=== PATIENT | male | born 1940 | race Caucasian/White ===

== ENCOUNTER 2016-07-09 10:11 | Outpatient (CLI) | payer MEDICARE, OTHER | END 2016-07-09 10:12 | disposition home or self-care (01) | DX: N40.1 Benign prostatic hyperplasia with lower urinary tract symptoms (principal); N13.8 Other obstructive and reflux uropathy ==

== ENCOUNTER 2016-09-23 09:45 | Outpatient (CLI) | payer MEDICARE, OTHER | END 2016-09-23 09:46 | disposition home or self-care (01) | DX: I10 Essential (primary) hypertension (principal); K30 Functional dyspepsia; D64.9 Anemia, unspecified; R73.9 Hyperglycemia, unspecified ==

== ENCOUNTER 2017-07-12 08:00 | Outpatient (CLI) | payer MEDICARE, OTHER ==
[2017-07-12 13:02] LABS: BASOPHILS % (AUTO) 0.9 %; EOSINOPHILS # (AUTO) 0.3 10^3/uL (0.0-0.7); HGB - HEMOGLOBIN 14.2 g/dL (14.0-18.0); LYMPHOCYTES # (AUTO) 1.4 10^3/uL (1.5-3.5); LYMPHOCYTES % (AUTO) 29.1 %; MEAN CORPUSCULAR HEMOGLOBIN 33.4 pg (27.0-31.0); MEAN CORPUSCULAR HGB CONC 35.4 g/dL (32.0-36.0); MEAN CORPUSCULAR VOLUME 94.5 fL (80.0-94.0); MEAN PLATELET VOLUME 8.5 fL (7.4-11.4); MONOCYTES # (AUTO) 0.4 10^3/uL (0.0-1.0); MONOCYTES % (AUTO) 7.5 %; NEUTROPHILS # (AUTO) 2.7 10^3/uL (1.5-6.6); NEUTROPHILS % (AUTO) 55.5 %; PLT - PLATELET COUNT 153 10^3/uL (130-450); RED BLOOD COUNT 4.26 10^6/uL (4.70-6.10); RED CELL DISTRIBUTION WIDTH 14.7 % (12.0-15.0); WHITE BLOOD COUNT 4.9 x10^3/uL (4.8-10.8)
[2017-07-12 14:22] LABS: ALBUMIN 4.4 g/dL (3.2-5.5); ALBUMIN/GLOBULIN RATIO 1.9 (1.0-2.2); ALKALINE PHOSPHATASE 33 IU/L (42-121); ALT ALANINE AMINOTRANSFERASE 17 IU/L (10-60); AST ASPARTATE AMINOTRANSFERASE 20 IU/L (10-42); BILIRUBIN,TOTAL 1.7 mg/dL (0.2-1.0); BUN - BLOOD UREA NITROGEN 16 mg/dL (6-20); CALCIUM 9.1 mg/dL (8.5-10.3); CARBON DIOXIDE - CO2 28 mmol/L (21-32); CHLORIDE 100 mmol/L (101-111); CHOL/HDL RATIO 3.4 (<5.0); CHOLESTEROL 200 mg/dL; CREATININE 0.9 mg/dL (0.6-1.2); GFR - MDRD 82 (>89); GLUCOSE 111 mg/dL (70-100); HDL CHOLESTEROL 59 mg/dL; LDL CHOLESTEROL,CALCULATED 129 mg/dL; LDL/HDL RATIO 2.2 (<3.6); SODIUM 132 mmol/L (135-145); TOTAL PROTEIN 6.7 g/dL (6.7-8.2); VLDL CHOLESTEROL 12 mg/dL
== END 2017-07-12 08:01 | disposition home or self-care (01) ==
LOC: LAB.WCP 08:00
PROVIDERS: ATTEND Family Medicine
DX: I10 Essential (primary) hypertension (principal); Z12.5 Encounter for screening for malignant neoplasm of prostate; Z13.220 Encounter for screening for lipoid disorders
CPT/HCPCS: 36415; 80053; 80061; 85025; G0103; 83721; 84153

== ENCOUNTER 2017-09-10 09:34 | Outpatient (CLI) | payer MEDICARE, OTHER ==
[2017-09-10 13:06] LABS: CALCIUM 9.4 mg/dL (8.5-10.3); CREATININE 0.8 mg/dL (0.6-1.2)
[2017-09-10 13:18] LABS: HB2 TOTAL 16.2 g/dL; HEMOGLOBIN A1C 0.47 g/dL; HEMOGLOBIN A1C % 4.8 % (4.6-6.2)
== END 2017-09-10 09:35 | disposition home or self-care (01) ==
LOC: LAB.WCP 09:34
PROVIDERS: ATTEND Family Medicine
DX: I10 Essential (primary) hypertension (principal); R73.9 Hyperglycemia, unspecified
CPT/HCPCS: 36415; 80048; 83036

== ENCOUNTER 2018-07-27 09:16 | Outpatient (CLI) | payer MEDICARE, OTHER ==
--- NOTE | 2018-07-27 09:52 | XRAY Report ---
Reason: HIP PX,LEFT Procedure Date: 07/27/2018 Accession Number: [id number] / [id number] Procedure: WCP - Hip w/Pelvis 2-3V LT CPT Code: FULL RESULT: EXAM: PELVIS RADIOGRAPHY AND LEFT HIP EXAM DATE: 07/27/2018 09:31 AM. CLINICAL HISTORY: Left hip pain. COMPARISON: None. TECHNIQUE: 3 view. FINDINGS: Bones: No fracture, dislocation or subluxation. Joints: Degenerative joint space narrowing of both hip joints left greater than right with mild to moderate osteophyte of the femoral heads and acetabula. Significant degenerative disk osteophyte at L5-S1 with sclerosis. Mild degenerative sclerosis of the left SI joint. Soft Tissues: Bowel staple line is noted in the pelvis. IMPRESSION: 1. Bilateral hip osteoarthritis left greater than right. No fracture appreciated. 2. Significant degenerative disk osteophytosis at L5-S1. RADIA
== END 2018-07-27 09:17 | disposition home or self-care (01) ==
LOC: DI.WCP 09:16
PROVIDERS: ATTEND Physician Assistant Medical
DX: M16.0 Bilateral primary osteoarthritis of hip (principal); M51.37 Other intervertebral disc degeneration, lumbosacral region

== ENCOUNTER 2018-10-26 15:00 | Outpatient (CLI) | payer MEDICARE, OTHER ==
[2018-10-26 18:59] LABS: BASOPHILS # (AUTO) 0.1 10^3/uL (0.0-0.1); BASOPHILS % (AUTO) 1.3 %; EOSINOPHILS # (AUTO) 0.2 10^3/uL (0.0-0.7); EOSINOPHILS % (AUTO) 4.1 %; HGB - HEMOGLOBIN 14.3 g/dL (14.0-18.0); LYMPHOCYTES % (AUTO) 17.9 %; MEAN CORPUSCULAR HEMOGLOBIN 33.4 pg (27.0-31.0); MEAN CORPUSCULAR HGB CONC 34.1 g/dL (32.0-36.0); MEAN CORPUSCULAR VOLUME 97.9 fL (80.0-94.0); MEAN PLATELET VOLUME 8.2 fL (7.4-11.4); MONOCYTES # (AUTO) 0.4 10^3/uL (0.0-1.0); MONOCYTES % (AUTO) 7.5 %; NEUTROPHILS % (AUTO) 69.2 %; PLT - PLATELET COUNT 200 10^3/uL (130-450); RED BLOOD COUNT 4.29 10^6/uL (4.70-6.10); RED CELL DISTRIBUTION WIDTH 14.6 % (12.0-15.0); WHITE BLOOD COUNT 5.7 x10^3/uL (4.8-10.8)
[2018-10-26 19:23] LABS: THYROID STIMULATING HORMONE 0.68 uIU/mL (0.34-5.60)
[2018-10-26 19:29] LABS: FERRITIN 93.9 ng/mL (23.9-336.2)
== END 2018-10-26 15:01 | disposition home or self-care (01) ==
LOC: LAB.WCP 15:00
PROVIDERS: ATTEND Physician Assistant Medical
DX: R53.82 Chronic fatigue, unspecified (principal)
CPT/HCPCS: 36415; 82306; 82607; 82728; 84443; 85025

== ENCOUNTER 2018-11-11 09:14 | Outpatient (CLI) | payer MEDICARE, OTHER ==
--- NOTE | 2018-11-12 11:15 | MRI Report ---
Reason: LUMBAR DISC DISORDER Procedure Date: 11/11/2018 Accession Number: [id number] / [id number] Procedure: MRI - Lumbar Spine W/O CPT Code: FULL RESULT: EXAM: MRI LUMBAR SPINE WITHOUT CONTRAST EXAM DATE: 11/11/2018 10:16 AM. CLINICAL HISTORY: Low back pain. COMPARISON: Lumbar spine without 07/08/2013 8:58 AM. TECHNIQUE: Multiplanar, multisequence T1-weighted and fluid-sensitive sequences of the lumbar spine from T12 to S1 without contrast. Other: None. FINDINGS: Spinal Canal: The conus terminates at L1-L2. The conus medullaris and cauda equina are unremarkable. Alignment: There is a 13 degree dextroscoliosis centered on L3. There is a slight flexion deformity at L2-L3. There is straightening of the lumbar lordosis. There is a 3 mm retrolisthesis at L5-S1. Bone Marrow: Five psi-krk-lcyguok lumbar vertebral bodies are assumed. There is Modic type I change at the L2-L3 level. There is mixed Modic type I anterior change at L3-L4 and L5-S1. Disk Levels/Facets: T12-L1: Canal and foramina are patent. There is mild facet joint osteoarthritis. L1-L2: There is moderate facet joint osteoarthritis. There is mild canal and foraminal narrowing. L2-L3: There is disk desiccation and loss of disk height. There are circumferential osteophytes with mild facet joint osteoarthritis. There is mild canal narrowing. There is mild bilateral foraminal narrowing. L3-L4: There is disk desiccation and loss of disk height. There are circumferential osteophytes larger on the left. There is moderate facet joint osteoarthritis with ligamentum flavum redundancy. The findings cause moderate canal narrowing. There is moderate bilateral foraminal narrowing. On the left and endplate osteophyte contacts the L3 nerve root lateral to the neural foramen. L4-L5: There are circumferential osteophytes moderate facet joint osteoarthritis and ligamentum flavum redundancy causing mild canal narrowing. There is narrowing of both lateral recesses, worse on the right. Osteophytes contact the right L5 nerve root in the lateral recess. There is moderate right and mild left foraminal narrowing. L5-S1: There is disk desiccation and loss of disk height. There is mild facet and also arthritis with ligamentum flavum redundancy. The findings cause mild canal narrowing. Both S1 nerve roots are contacted by the endplates secondary to the anterolisthesis. There is severe right and mild left foraminal narrowing. The right L5 nerve root is compressed within the foramen. Musculature: Normal. No edema or fatty atrophy. Other: The partially visualized retroperitoneum is unremarkable. There is prominent epidural fat from L2 to L4-L5 suggestive of epidural lipomatosis. IMPRESSION: 1. Moderate degenerative change of the lumbar spine not significantly altered since the prior study. 2. There is a 13 degrees dextroscoliosis centered on L3. There is straightening of the lumbar lordosis. There is a grade 1 retrolisthesis at L5-S1. 3. L3-L4: There is moderate canal narrowing. There is moderate bilateral foraminal narrowing. On the left and endplate osteophyte contacts the L3 nerve root lateral to the neural foramen. 4. L4-L5: There is mild canal narrowing. There is narrowing of both lateral recesses, worse on the right. Osteophytes contact the right L5 nerve root in the lateral recess. There is moderate right and mild left foraminal narrowing. 5. L5-S1: There is mild canal narrowing. Both S1 nerve roots are contacted by the endplates secondary to the anterolisthesis. There is severe right and mild left foraminal narrowing. The right L5 nerve root is compressed within the foramen. Comment: The following findings are so common in adults without low back pain that while we report their presence, they must be interpreted with caution and in the context of the clinical situation. (Reference Carlenek et al, Spine 2001) Prevalence of findings in patients without low back pain: Disk degeneration (any evidence): 92% Disk desiccation/T2 signal loss: 83% Disk height loss: 56% Disk bulge: 64% Disk protrusion: 32% Annular tear/high intensity zone: 38% RADIA
== END 2018-11-11 09:15 | disposition home or self-care (01) ==
LOC: DI 09:14
PROVIDERS: ATTEND Physician Assistant Medical
DX: M47.816 Spondylosis without myelopathy or radiculopathy, lumbar region (principal); M51.36 Other intervertebral disc degeneration, lumbar region; M48.061 Spinal stenosis, lumbar region without neurogenic claudication; M41.86 Other forms of scoliosis, lumbar region; M43.17 Spondylolisthesis, lumbosacral region
CPT/HCPCS: 72148

== ENCOUNTER 2020-03-27 13:31 | Outpatient (CLI) | payer MEDICARE, OTHER ==
--- NOTE | 2020-03-27 16:49 | XRAY Report ---
PROCEDURE: Chest 2 View X-Ray INDICATIONS: DYSPNEA ON EXERTION TECHNIQUE: 2 view(s) of the chest. COMPARISON: None. FINDINGS: Surgical changes and devices: None. Lungs and pleura: No pleural effusions or pneumothorax. Lungs are clear. Mediastinum: Mediastinal contours are normal. Heart size is normal. Bones and chest wall: No suspicious bony abnormalities. Soft tissues appear unremarkable. IMPRESSION: No acute disease over the chest. A source of dyspnea on exertion is not found. Reviewed by: Rojas Santoyo MD on 03/27/2020 4:48 PM PDT Approved by: Rojas Santoyo MD on 03/27/2020 4:48 PM PDT Station ID: [id number]
== END 2020-03-27 13:32 | disposition home or self-care (01) ==
LOC: DI 13:31
PROVIDERS: ATTEND Physician Assistant Medical
DX: R06.09 Other forms of dyspnea (principal)
CPT/HCPCS: 71046

== ENCOUNTER 2020-04-09 11:06 | Outpatient (CLI) | payer MEDICARE, OTHER ==
[2020-04-09 11:25] LABS: BASOPHILS # (AUTO) 0.1 10^3/uL (0.0-0.1); BASOPHILS % (AUTO) 1.2 %; EOSINOPHILS # (AUTO) 0.3 10^3/uL (0.0-0.7); EOSINOPHILS % (AUTO) 6.5 %; HGB - HEMOGLOBIN 13.8 g/dL (14.0-18.0); LYMPHOCYTES % (AUTO) 18.5 %; MEAN CORPUSCULAR HGB CONC 34.9 g/dL (32.0-36.0); MEAN CORPUSCULAR VOLUME 97.3 fL (80.0-94.0); MEAN PLATELET VOLUME 9.2 fL (7.4-11.4); MONOCYTES # (AUTO) 0.4 10^3/uL (0.0-1.0); MONOCYTES % (AUTO) 7.1 %; NEUTROPHILS # (AUTO) 3.5 10^3/uL (1.5-6.6); NEUTROPHILS % (AUTO) 66.3 %; PLT - PLATELET COUNT 158 10^3/uL (130-450); RED BLOOD COUNT 4.06 10^6/uL (4.70-6.10); RED CELL DISTRIBUTION WIDTH 14.2 % (12.0-15.0); WHITE BLOOD COUNT 5.2 x10^3/uL (4.8-10.8)
[2020-04-09 11:41] LABS: ALBUMIN 4.4 g/dL (3.2-5.5); ALBUMIN/GLOBULIN RATIO 1.8 (1.0-2.2); ALKALINE PHOSPHATASE 43 IU/L (42-121); ALT ALANINE AMINOTRANSFERASE 23 IU/L (10-60); AST ASPARTATE AMINOTRANSFERASE 23 IU/L (10-42); BILIRUBIN,TOTAL 1.9 mg/dL (0.2-1.0); BUN - BLOOD UREA NITROGEN 23 mg/dL (6-20); CALCIUM 9.5 mg/dL (8.5-10.3); CARBON DIOXIDE - CO2 25 mmol/L (21-32); CHLORIDE 98 mmol/L (101-111); CHOLESTEROL 209 mg/dL; CREATININE 1.2 mg/dL (0.6-1.2); GLUCOSE 186 mg/dL (70-100); HDL CHOLESTEROL 52 mg/dL; LDL CHOLESTEROL,CALCULATED 125 mg/dL; LDL/HDL RATIO 2.4 (<3.6); SODIUM 133 mmol/L (135-145); TOTAL PROTEIN 6.9 g/dL (6.7-8.2); VLDL CHOLESTEROL 32 mg/dL
[2020-04-09] MEDS ORDERED: IOVERSOL 320 100 ML VIAL IVP ONE ×2 (12:08→18:47)
--- NOTE | 2020-04-09 13:45 | CT Report ---
PROCEDURE: ANGIO CHEST W/WO INDICATIONS: DUSPNEA ON EXERTION CONTRAST: IV CONTRAST: Optiray 320 ml: 80 PO CONTRAST: *NO PO CONTRAST TECHNIQUE: After the administration of intravenous contrast, 2 mm thick sections acquired from the pulmonary api rohan to the posterior costophrenic angles. 3-dimensional maximum intensity projection (MIP) coronal a nd sagittal reformats were then acquired through the thorax. For radiation dose reduction, the follow ing was used: automated exposure control, adjustment of mA and/or kV according to patient size. COMPARISON: None. FINDINGS: Image quality: Excellent. Pulmonary arteries: Pulmonary arteries are normal in size, and demonstrate no intraluminal filling d efects to suggest central pulmonary embolism. Lungs and pleura: Minimal bibasilar atelectasis. No focal consolidation. A 7 mm pleural-based nodula r density involving the posterior aspect of the right lower lobe (image 222, series 6) may represent atelectasis versus pleural-based nodule. Lungs are otherwise clear. No pleural effusions or pneumoth orax. Central and peripheral airways are patent. Mediastinum: Heart size is normal, without pericardial effusion. Atherosclerotic calcifications of the coronary arteries. No mediastinal or hilar adenopathy. Thoracic aorta is normal in caliber and e nhancement. Esophagus is normal in caliber, without hiatal hernia. Bones and chest wall: No suspicious bony lesions. Ribs and thoracic spine appear intact throughout. The thyroid appears unremarkable. No axillary or supraclavicular adenopathy. Abdomen: Visualized upper abdominal solid organs appear normal in the early arterial phase of enhanc ement. IMPRESSION: 1. CT chest without evidence for acute pulmonary emboli or acute cardiopulmonary abnormalities. 2. Possible 7 mm pleural-based nodule in the right lower lobe which may represent small focal atelect asis versus a pleural-based nodule with inflammatory/infectious etiology most likely. A follow-up CT chest in 6-12 months is recommended to document stability versus resolution. Reviewed by: Edgardo Alvarado MD on 04/09/2020 1:44 PM PDT Approved by: Edgardo Alvarado MD on 04/09/2020 1:44 PM PDT Station ID: [id number]
[2020-04-11 12:42] LABS: HEMOGLOBIN A1c% 4.8 % (4.27-6.07)
== END 2020-04-09 11:07 | disposition home or self-care (01) ==
LOC: DI 11:06
PROVIDERS: ATTEND Physician Assistant Medical
DX: R06.09 Other forms of dyspnea (principal); R73.9 Hyperglycemia, unspecified; I10 Essential (primary) hypertension; J31.0 Chronic rhinitis
CPT/HCPCS: 36415; 71275; 80053; 80061; 85025; Q9967; 83036; 83721

== ENCOUNTER 2020-05-07 08:00 | Outpatient (CLI) | payer MEDICARE, OTHER | END 2020-05-07 23:59 | disposition home or self-care (01) | LOC: LAB.R 08:00 | PROVIDERS: ATTEND Physician Assistant Medical | DX: J20.9 Acute bronchitis, unspecified (principal); Z20.828 Contact with and (suspected) exposure to other viral communicable diseases ==

== ENCOUNTER 2020-09-18 13:03 | Emergency (ER) | payer MEDICARE, OTHER ==
[2020-09-18] MEDS ORDERED: ASPIRIN 325 MG TABLET PO STA (14:05)
--- NOTE | 2020-09-18 14:07 | ED Physician Documentation ---
PD HPI CHEST PAIN - Stated complaint Stated Complaint: CHEST PX - Chief complaint Chief Complaint: Cardiac - History obtained from History obtained from: Patient - Additional information Additional information: This is an 80-year-old gentleman with history of hypertension who has had long- term shortness of breath. He saw fig caprifier and had a stress test which she describes as abnormal about a year and a half ago but it was felt potentially due to a pulmonary issue. He for the last 3 days has had constant but waxing and waning substernal nonradiating chest pressure. Does not get worse with e xertion. Dyspnea is not worse than normal. Review of Systems Ten Systems: 10 systems reviewed and negative Constitutional: denies: Fever, Chills Cardiac: denies: Palpitations, Pedal edema, Calf pain Respiratory: denies: Hemoptysis, Wheezing PD PAST MEDICAL HISTORY - Past Medical History Cardiovascular: Hypertension Respiratory: None Endocrine/Autoimmune: None GI: GERD : Benign prostate hypertrophy, Nocturia, Frequency HEENT: None Psych: None Musculoskeletal: Osteoarthritis Derm: Eczema - Past Surgical History General: EGD, Appendectomy, Bowel surgery, Colonoscopy Ortho: Arthroscopic surgery HEENT: Tonsil/Adenoidectomy - Present Medications Home Medications: Ambulatory Orders Medication Instructions Recorded Confirmed Amlodipine Besylate 10 mg PO DAILY 02/09/13 09/18/20 Aspirin Chewable [[facility] Herrera 81 mg PO DAILY 02/09/13 09/18/20 Aspirin] Multivitamin [Multivitamins] 1 each PO DAILY 02/09/13 09/18/20 Omeprazole [PriLOSEC] 20 mg PO BID 02/09/13 09/18/20 Carvedilol [Coreg] 6.25 mg PO BID 09/18/20 09/18/20 Cholecalciferol [Vitamin D3] 25 mcg PO DAILY 09/18/20 09/18/20 Olmesartan/Hydrochlorothiazide 1 tab ORAL DAILY 09/18/20 09/18/20 [Olmesartan-Hctz 40-12.5 mg Tab] - Allergies Allergies/Adverse Reactions: Allergies Allergy/AdvReac Type Severity Reaction Status Date / Time acetaminophen [From Percocet] Allergy Headache Verified 09/18/20 13:14 codeine [Codeine] Allergy Nausea Verified 09/18/20 13:14 itraconazole [From Sporanox] Allergy unknown Verified 09/18/20 13:14 oxycodone HCl * Allergy Headache Verified 09/18/20 13:14 [From Percocet] penicillin G Allergy Rash Verified 09/18/20 13:14 pseudoephedrine HCl * Allergy prostate Verified 09/18/20 13:14 [From Sudafed] PD ED PE NORMAL - Vitals Vital signs reviewed: Yes - General General: Alert and oriented X 3, No acute distress - HEENT HEENT: PERRL, EOMI - Neck Neck: Supple, no meningeal sign, No bony TTP - Cardiac Cardiac: RRR, No murmur - Respiratory Respiratory: No respiratory distress, Clear bilaterally - Abdomen Abdomen: Non tender - Back Back: No CVA TTP, No spinal TTP - Derm Derm: Normal color, Warm and dry - Extremities Extremities: No edema, No calf tenderness / cord - Neuro Neuro: Alert and oriented X 3, Normal speech Results - Vitals Vitals: Vital Signs - 24 hr 09/18/20 09/18/20 09/18/20 13:16 14:10 14:20 Temperature 36.7 C Heart Rate 67 61 69 Respiratory 18 16 18 Rate Blood Pressure 168/77 H 212/97 H 156/77 H O2 Saturation 97 97 97 09/18/20 09/18/20 14:26 14:31 Temperature Heart Rate 66 72 Respiratory 16 16 Rate Blood Pressure 144/76 H 149/86 H O2 Saturation 95 97 Oxygen O2 Source Room air - EKG (time done) 1355 Rate: Rate (enter#) (61) Rhythm: NSR [place]: Normal Intervals: Normal NV QRS: Normal Ischemia: ST depression (ST depression which is mild anteriorly and laterally.). No: ST elevation c/w ischemia Compare to prior EKG: Old EKG unavailable Computer interpretation: Agree with computer - Labs Labs: Laboratory Tests 09/18/20 09/18/20 09/18/20 14:10 14:10 14:10 WBC 5.7 RBC 4.08 L Hgb 13.8 L Hct 39.3 L MCV 96.3 H MCH 33.8 H MCHC 35.1 RDW 14.1 Plt Count 128 L MPV 9.6 Neut # (Auto) 3.9 Lymph # (Auto) 1.0 L Jewell # (Auto) 0.5 Eos # (Auto) 0.3 Baso # (Auto) 0.1 Absolute Nucleated RBC 0.00 Nucleated RBC % 0.0 Sodium 133 L Potassium 4.3 Chloride 98 L Carbon Dioxide 26 Anion Gap 9.0 BUN 21 H Creatinine 1.0 Estimated GFR (MDRD) 72 L Glucose 118 H Calcium 9.9 Total Bilirubin 1.0 AST 27 ALT 28 Alkaline Phosphatase 48 Troponin I High Sens 8.5 Total Protein 7.1 Albumin 4.6 Globulin 2.5 Albumin/Globulin Ratio 1.8 Lipase 32 - Rads (name of study) 1v chest Radiology: EMP read contemporaneously (NAD) PD MEDICAL DECISION MAKING - ED course ED course: 80-year-old gentleman with no known coronary disease but history of hypertension presents with 2 days of constant chest pressure with negative biomarkers. Single view chest x-ray interpreted contemporaneously by me was normal. He is advised to follow-up with the fig caprifier and return if worsening. Departure - Departure Disposition: 01 Home, Self Care Clinical Impression: Chest pain Qualifiers: Chest pain type: unspecified Qualified Code(s): R07.9 - Chest pain, unspecified Condition: Good Record reviewed to determine appropriate education?: Yes Instructions: ED Chest Pain NonCardiac Comments: Follow-up with your fig caprifier, next available appointment. Return if it changes worsens or new symptoms develop.
[2020-09-18] MEDS ORDERED: NITROGLYCERIN SL 0.4 MG TABLET SL STA (14:09)
[2020-09-18] MEDS ORDERED: NITROGLYCERIN 2% PASTE TOP STA (14:09)
[2020-09-18 14:14] LABS: BASOPHILS # (AUTO) 0.1 10^3/uL (0.0-0.1); BASOPHILS % (AUTO) 0.9 %; EOSINOPHILS # (AUTO) 0.3 10^3/uL (0.0-0.7); EOSINOPHILS % (AUTO) 5.6 %; HCT - HEMATOCRIT 39.3 % (42.0-52.0); HGB - HEMOGLOBIN 13.8 g/dL (14.0-18.0); LYMPHOCYTES % (AUTO) 16.8 %; MEAN CORPUSCULAR HEMOGLOBIN 33.8 pg (27.0-31.0); MEAN CORPUSCULAR HGB CONC 35.1 g/dL (32.0-36.0); MEAN CORPUSCULAR VOLUME 96.3 fL (80.0-94.0); MEAN PLATELET VOLUME 9.6 fL (7.4-11.4); MONOCYTES # (AUTO) 0.5 10^3/uL (0.0-1.0); NEUTROPHILS # (AUTO) 3.9 10^3/uL (1.5-6.6); NEUTROPHILS % (AUTO) 68.4 %; PLT - PLATELET COUNT 128 10^3/uL (130-450); RED BLOOD COUNT 4.08 10^6/uL (4.70-6.10); RED CELL DISTRIBUTION WIDTH 14.1 % (12.0-15.0); WHITE BLOOD COUNT 5.7 x10^3/uL (4.8-10.8)
--- NOTE | 2020-09-18 14:25 | XRAY Report ---
PROCEDURE: Chest 1 View X-Ray INDICATIONS: Chest Pain TECHNIQUE: One view of the chest was acquired. COMPARISON: Chest x-ray 04/09/2020 FINDINGS: Surgical changes and devices: None. Lungs and pleura: No pleural effusions or pneumothorax. Lungs are clear. Mediastinum: Mediastinal contours appear normal. Heart size is normal. Bones and chest wall: No suspicious bony lesions. Overlying soft tissues appear unremarkable. IMPRESSION: No acute pulmonary process. Reviewed by: Mayela Benson MD on 09/18/2020 2:24 PM PDT Approved by: Mayela Benson MD on 09/18/2020 2:24 PM PDT Station ID: [id number]
[2020-09-18] MEDS ORDERED: NITROGLYCERIN 2% PASTE TOP ONE (14:26)
[2020-09-18 14:31] LABS: ALBUMIN 4.6 g/dL (3.2-5.5); ALBUMIN/GLOBULIN RATIO 1.8 (1.0-2.2); CALCIUM 9.9 mg/dL (8.5-10.3); POTASSIUM 4.3 mmol/L (3.5-5.0); TOTAL PROTEIN 7.1 g/dL (6.7-8.2)
[2020-09-18 15:03] VITALS: BP 142/76
--- OUTSIDE RECORDS SUMMARY | 2020-09-24 23:58 | EXTERNAL MEDICAL SUMMARY RPT | Continuity of Care Document ---
:1940 Demographics Phone Unavailable Preferred Language French Marital Status Unknown Islam Affiliation Unknown Race Unknown Ethnic Group Unknown Author Organization [facility] Address [address] [phone] Phone Care Team Providers Name Role Phone Young Unavailable Unavailable Problems date description facility [id number] Other specified disorders of arteries a [facility] Social History date description facility [id number]
== END 2020-09-18 15:13 | disposition home or self-care (01) ==
LOC: ED 13:03
DX: R07.89 Other chest pain (principal); I10 Essential (primary) hypertension; Z79.82 Long term (current) use of aspirin
CPT/HCPCS: 36415; 71045; 80053; 83690; 84484; 85025; 93005; 99284; A9270

== ENCOUNTER 2021-01-18 10:29 | Outpatient (CLI) | payer MEDICARE, OTHER ==
--- NOTE | 2021-01-18 11:11 | XRAY Report ---
PROCEDURE: Chest 2 View X-Ray INDICATIONS: COUGH TECHNIQUE: 2 view(s) of the chest. COMPARISON: 09/18/2020 FINDINGS: Surgical changes and devices: None. Lungs and pleura: No pleural effusions or pneumothorax. Lungs are clear. Mediastinum: Mediastinal contours are normal. Heart size is normal. Bones and chest wall: No suspicious bony abnormalities. Soft tissues appear unremarkable. IMPRESSION: No acute process. Reviewed by: Gunner Soria MD on 01/18/2021 10:09 AM FLO Approved by: Gunner Soria MD on 01/18/2021 10:09 AM FLO Station ID: [id number]
== END 2021-01-18 23:59 | disposition home or self-care (01) ==
LOC: DI.N 10:29
PROVIDERS: ATTEND Family Medicine
DX: R05 Cough (principal); Z20.822 Contact with and (suspected) exposure to COVID-19
CPT/HCPCS: 71046; U0004

== ENCOUNTER 2021-01-24 08:00 | Outpatient (CLI) | payer MEDICARE, OTHER | END 2021-01-24 23:59 | disposition home or self-care (01) | LOC: LAB.N 08:00 | PROVIDERS: ATTEND Physician Assistant Medical | DX: J20.9 Acute bronchitis, unspecified (principal); Z20.822 Contact with and (suspected) exposure to COVID-19 ==

== ENCOUNTER 2021-09-02 08:00 | Outpatient (CLI) | payer MEDICARE, OTHER ==
--- NOTE | 2021-09-02 15:07 | XRAY Report ---
PROCEDURE: Hip 2 View LT INDICATIONS: HIP PAIN TECHNIQUE: 2 views of the hip were acquired. COMPARISON: 07/27/2018 FINDINGS: Bones: No fractures or dislocations. Moderately severe, nearly symmetric circumferential joint space loss in both hips, left slightly worse than right with slight axial migration of the left hip greate r than right and moderate periarticular spurring. Additionally there is moderate diffuse joint space loss in both sacroiliac joints with mild sclerosis along the left sacral ala. Severe degenerative dis c and endplate change at L5-S1 incidentally noted. No suspicious bony lesions. The visualized pelvic ring appears intact. Soft tissues: No suspicious soft tissue calcifications or masses. Mild atherosclerotic calcificatio n. Anastomotic staple line in the central pelvis. IMPRESSION: 1. Fairly stable, moderately severe bilateral hip joint degeneration, left slightly worse than right, but without significant progression since the prior study. 2. Symmetric degenerative change in the sacroiliac joints and lower lumbar spine. Reviewed by: Andra Rooney MD on 09/02/2021 3:06 PM PDT Approved by: Andra Rooney MD on 09/02/2021 3:06 PM PDT Station ID: [id number]
== END 2021-09-02 23:59 ==
LOC: DI.WOS 08:00
PROVIDERS: ATTEND Physician Assistant
DX: M70.72 Other bursitis of hip, left hip (principal); M16.0 Bilateral primary osteoarthritis of hip; M47.898 Other spondylosis, sacral and sacrococcygeal region

== ENCOUNTER 2021-10-10 08:49 | Outpatient (CLI) | payer MEDICARE, OTHER ==
[2021-10-10 09:00] LABS: BASOPHILS % (AUTO) 0.7 %; EOSINOPHILS # (AUTO) 0.4 10^3/uL (0.0-0.7); EOSINOPHILS % (AUTO) 6.9 %; HCT - HEMATOCRIT 41.7 % (42.0-52.0); HGB - HEMOGLOBIN 14.4 g/dL (14.0-18.0); LYMPHOCYTES % (AUTO) 17.3 %; MEAN CORPUSCULAR HEMOGLOBIN 32.3 pg (27.0-31.0); MEAN CORPUSCULAR HGB CONC 34.5 g/dL (32.0-36.0); MEAN CORPUSCULAR VOLUME 93.5 fL (80.0-94.0); MEAN PLATELET VOLUME 9.7 fL (7.4-11.4); MONOCYTES # (AUTO) 0.6 10^3/uL (0.0-1.0); NEUTROPHILS # (AUTO) 3.5 10^3/uL (1.5-6.6); NEUTROPHILS % (AUTO) 64.6 %; PLT - PLATELET COUNT 150 10^3/uL (130-450); RED BLOOD COUNT 4.46 10^6/uL (4.70-6.10); RED CELL DISTRIBUTION WIDTH 15.4 % (12.0-15.0); WHITE BLOOD COUNT 5.5 x10^3/uL (4.8-10.8)
[2021-10-10 09:20] LABS: BUN - BLOOD UREA NITROGEN 21 mg/dL (6-20); CALCIUM 9.7 mg/dL (8.5-10.3); CARBON DIOXIDE - CO2 25 mmol/L (21-32); CHLORIDE 99 mmol/L (101-111); CHOL/HDL RATIO 2.4 (<5.0); CHOLESTEROL 163 mg/dL; CREATININE 0.9 mg/dL (0.6-1.2); GFR - MDRD 81 (>89); GLUCOSE 151 mg/dL (70-100); HDL CHOLESTEROL 68 mg/dL; LDL CHOLESTEROL,CALCULATED 74 mg/dL; LDL/HDL RATIO 1.1 (<3.6); POTASSIUM 4.3 mmol/L (3.5-5.0); SODIUM 134 mmol/L (135-145); TRIGLYCERIDES 103 mg/dL; VLDL CHOLESTEROL 21 mg/dL
== END 2021-10-10 08:50 | disposition home or self-care (01) ==
LOC: LAB 08:49
PROVIDERS: ATTEND Internal Medicine Cardiovascular Disease
DX: E78.5 Hyperlipidemia, unspecified (principal); I10 Essential (primary) hypertension
CPT/HCPCS: 36415; 80048; 80061; 83721; 85025

== ENCOUNTER 2021-11-13 13:03 | Outpatient (CLI) | payer MEDICARE, OTHER ==
--- NOTE | 2021-11-13 14:56 | XRAY Report ---
PROCEDURE: Lumbar Spine 2 View INDICATIONS: LUMBAR DISC DISORDER TECHNIQUE: 3 views of the lumbar spine were acquired. COMPARISON: None. FINDINGS: Bones: 5 urh-zng-gskergx vertebrae are present. There is normal bony alignment. No vertebral body compression fractures. No suspicious bony lesions. Severe L1-L2 and L5-S1 degenerative disc disease. Moderate L3-L4 and L4-L5 degenerative disease. Mild L1-L2 degenerative disease. Moderate L3-L4, L4-L 5 and L5-S1 facet arthropathy. Soft tissues: Overlying bowel gas pattern is normal. No suspicious soft tissue calcifications. IMPRESSION: 1. Multilevel degenerative disc disease. 2. Multilevel facet arthropathy. 3. No fracture. No acute osseous lesion. If there is continued clinical concern for pathology, then M RI should be considered for further evaluation. Reviewed by: Patricia Reyes MD, PhD on 11/13/2021 2:55 PM PDT Approved by: Patricia Reyes MD, PhD on 11/13/2021 2:55 PM PDT Station ID: [id number]
== END 2021-11-13 13:04 | disposition home or self-care (01) ==
LOC: DI.N 13:03
PROVIDERS: ATTEND Physician Assistant Medical
DX: M51.36 Other intervertebral disc degeneration, lumbar region (principal); M47.816 Spondylosis without myelopathy or radiculopathy, lumbar region; M51.37 Other intervertebral disc degeneration, lumbosacral region; M47.817 Spondylosis without myelopathy or radiculopathy, lumbosacral region

== ENCOUNTER 2022-02-20 08:49 | Outpatient (CLI) | payer MEDICARE, OTHER ==
--- NOTE | 2022-02-20 12:47 | XRAY Report ---
PROCEDURE: Knee 2 View RT INDICATIONS: INTERNAL DERANGEMENT RIGHT KNEE TECHNIQUE: 2 views of the right knee(s) were acquired. COMPARISON: None. FINDINGS: Bones: No fractures or dislocations. There is a osteochondroma arising off the posterior aspect of t he proximal tibia. There is tricompartment degenerative change with moderate to severe medial compart ment joint space loss and patellofemoral joint space loss which is likely at least moderate, and pote ntially severe. Soft tissues: Small joint effusion. No suspicious soft tissue calcifications. Atherosclerotic calc ifications of the popliteal artery. IMPRESSION: 1. Degenerative arthritis of the right knee. 2. Osteochondroma of the proximal tibia. This is typically an incidental finding. However, if it is a ssociated with pain, consider knee MRI with and without contrast (this is not an MR arthrogram, but bernabe aguilar is a neoplasm protocol MRI). Reviewed by: Bryan Silverman MD on 02/20/2022 12:46 PM PDT Approved by: Bryan Silverman MD on 02/20/2022 12:46 PM PDT Station ID: [id number]
== END 2022-02-20 08:50 | disposition home or self-care (01) ==
LOC: DI 08:49
PROVIDERS: ATTEND Family Medicine
DX: M17.11 Unilateral primary osteoarthritis, right knee (principal)

== ENCOUNTER 2022-03-30 08:00 | Outpatient (CLI) | payer MEDICARE, OTHER ==
--- NOTE | 2022-03-30 12:55 | XRAY Report ---
PROCEDURE: Knee 4 View RT INDICATIONS: RIGHT KNEE PAIN TECHNIQUE: 3 views of the right knee(s) were acquired. COMPARISON: X-ray Right knee, 02/20/2022. FINDINGS: Bones: No fractures or dislocations. No suspicious bony lesions. Moderate degenerative joint diseas e. Joint space narrowing medially with weightbearing. No definitive left knee total arthroplasty. Soft tissues: Small joint effusion. Vascular calcifications consistent with atherosclerosis. IMPRESSION: Moderate degenerative joint disease. Small knee joint effusion. Reviewed by: Barndin Trotter MD on 03/30/2022 12:53 PM PDT Approved by: Brandin Trotter MD on 03/30/2022 12:53 PM PDT Station ID: [id number]
== END 2022-03-30 23:59 | disposition home or self-care (01) ==
LOC: DI.WOS 08:00
PROVIDERS: ATTEND Physician Assistant
DX: M17.11 Unilateral primary osteoarthritis, right knee (principal); M25.461 Effusion, right knee

== ENCOUNTER 2022-04-18 13:36 | Outpatient (CLI) | payer MEDICARE, OTHER ==
--- NOTE | 2022-04-20 10:17 | MRI Report ---
PROCEDURE: PELVIS WO INDICATIONS: SACROILIITIS TECHNIQUE: Noncontrast coronal T1 spin echo and STIR through the bony pelvis. Sagittal T2 FSE with fat saturati on, oblique axial PD FSE and T2 FSE with fat saturation through the symphysis pubis. COMPARISON: None. FINDINGS: Image quality: Excellent. Bones and joints: Moderate osteoarthritic changes are noted throughout bony pelvis with joint space n arrowing, subchondral sclerosis and small marginal osteophyte formation. Mild edema involving bilater al pubic bones adjacent to the symphysis pubis is seen. There is also mild edema involving bilateral sacrum adjacent to sacroiliac joint anteriorly. No bony erosion or ankylosis is seen. No evidence of avascular necrosis of femoral head. Degenerative disc disease in visualized lower lumbar spine is see n with loss of disc height and disc signals. No suspicious bony lesion. Soft tissues: There is no gross pelvic muscle or tendon signal abnormalities. Global signal abnormali ty throughout bilateral hip labrum are seen concerning for extensive bilateral hip labral tear. No ab normal soft tissue calcifications. No significant hip joint effusion. There is no pelvic free fluid. No abnormal bowel wall thickening. Bladder wall thickness is normal. No pelvic or inguinal lymphadeno gabriela. IMPRESSION: 1. Mild edema involving bilateral anterior sacrum adjacent to sacroiliac joints are seen suggestive o f mild sacroiliitis. No bony erosion or ankylosis is seen. 2. Osteoarthritic changes involving symphysis pubis with mild adjacent edema concerning for osteitis pubis. 3. Moderate bilateral hip joint osteoarthritis and suggestion of extensive bilateral hip labral tear. No fracture or dislocation. No evidence of avascular necrosis of femoral head. 4. No gross pelvic free fluid. No pelvic muscle or tendon signal abnormalities. Reviewed by: Laci Laurent MD on 04/20/2022 10:16 AM PDT Approved by: Laci Laurent MD on 04/20/2022 10:16 AM PDT Station ID: [id number]
== END 2022-04-18 13:37 | disposition home or self-care (01) ==
LOC: DI 13:36
PROVIDERS: ATTEND Physician Assistant
DX: M46.1 Sacroiliitis, not elsewhere classified (principal); M19.09 Primary osteoarthritis, other specified site; M16.0 Bilateral primary osteoarthritis of hip

== ENCOUNTER 2022-10-26 13:50 | Outpatient (CLI) | payer MEDICARE, OTHER ==
[2022-10-26 14:13] LABS: BASOPHILS # (AUTO) 0.1 10^3/uL (0.0-0.1); BASOPHILS % (AUTO) 0.8 %; EOSINOPHILS # (AUTO) 0.3 10^3/uL (0.0-0.7); EOSINOPHILS % (AUTO) 5.2 %; HCT - HEMATOCRIT 36.4 % (42.0-52.0); HGB - HEMOGLOBIN 12.2 g/dL (14.0-18.0); LYMPHOCYTES # (AUTO) 0.7 10^3/uL (1.5-3.5); LYMPHOCYTES % (AUTO) 11.9 %; MEAN CORPUSCULAR HEMOGLOBIN 31.8 pg (27.0-31.0); MEAN CORPUSCULAR HGB CONC 33.5 g/dL (32.0-36.0); MEAN CORPUSCULAR VOLUME 94.8 fL (80.0-94.0); MEAN PLATELET VOLUME 10.5 fL (7.4-11.4); MONOCYTES # (AUTO) 0.4 10^3/uL (0.0-1.0); MONOCYTES % (AUTO) 6.4 %; NEUTROPHILS # (AUTO) 4.6 10^3/uL (1.5-6.6); NEUTROPHILS % (AUTO) 75.5 %; PLT - PLATELET COUNT 144 10^3/uL (130-450); RED BLOOD COUNT 3.84 10^6/uL (4.70-6.10); RED CELL DISTRIBUTION WIDTH 14.9 % (12.0-15.0); WHITE BLOOD COUNT 6.1 x10^3/uL (4.8-10.8)
[2022-10-26 14:28] LABS: ALBUMIN 4.2 g/dL (3.2-5.5); ALBUMIN/GLOBULIN RATIO 1.5 (1.0-2.2); ALKALINE PHOSPHATASE 49 IU/L (42-121); ALT ALANINE AMINOTRANSFERASE 21 IU/L (10-60); AST ASPARTATE AMINOTRANSFERASE 22 IU/L (10-42); BILIRUBIN,TOTAL 1.5 mg/dL (0.2-1.0); BUN - BLOOD UREA NITROGEN 32 mg/dL (6-20); CALCIUM 9.2 mg/dL (8.5-10.3); CARBON DIOXIDE - CO2 26 mmol/L (21-32); CHLORIDE 102 mmol/L (101-111); CHOLESTEROL 133 mg/dL; CREATININE 1.3 mg/dL (0.6-1.2); GFR - MDRD 53 (>89); GLUCOSE 161 mg/dL (70-100); HDL CHOLESTEROL 44 mg/dL; LDL CHOLESTEROL,CALCULATED 46 mg/dL; POTASSIUM 4.5 mmol/L (3.5-5.0); SODIUM 138 mmol/L (135-145); TRIGLYCERIDES 216 mg/dL; VLDL CHOLESTEROL 43 mg/dL
[2022-10-26 14:34] LABS: BILIRUBIN,URINE NEGATIVE (NEGATIVE); GLUCOSE, URINE (UA) NEGATIVE (NEGATIVE); KETONES,URINE (UA) NEGATIVE (NEGATIVE); LEUKOCYTE ESTERASE, URINE NEGATIVE (NEGATIVE); NITRITE,URINE NEGATIVE (NEGATIVE); OCCULT BLOOD,URINE NEGATIVE (NEGATIVE); PROTEIN,URINE NEGATIVE (NEGATIVE); UROBILINOGEN,URINE 0.2 (NORMAL) E.U./dL (NORMAL)
[2022-10-26 14:38] LABS: CLARITY,URINE CLEAR (CLEAR)
[2022-10-26 14:49] LABS: BACTERIA,URINE Rare /HPF (None Seen); RBC,URINE 0-5 /HPF (0-5); SQUAMOUS EPITHELIAL CELL,UR RARE Squamous (<= Few); WBC,URINE 0-3 /HPF (0-3)
== END 2022-10-26 13:51 | disposition home or self-care (01) ==
LOC: LAB 13:50
PROVIDERS: ATTEND Internal Medicine
DX: I10 Essential (primary) hypertension (principal); Z13.220 Encounter for screening for lipoid disorders; N40.1 Benign prostatic hyperplasia with lower urinary tract symptoms
CPT/HCPCS: 36415; 80053; 80061; 81001; 83721; 84153; 85025; 87086

== ENCOUNTER 2023-04-26 10:01 | Day surgery (SDC) | payer MEDICARE, OTHER ==
[2023-04-26] MEDS ORDERED: CIPROFLOXACIN 400 MG/200 ML 400 MG/200 ML BAG IV ONE (10:16)
[2023-04-26] MEDS ORDERED: LACTATED RINGERS 1,000 ML IV ONE (10:43)
--- NOTE | 2023-04-26 11:52 | ANESTHESIA ---
Pre-Anesthesia VS, & Labs - Diagnosis BPH - Procedure TURP Vital Signs: Temp Pulse Resp BP Pulse Ox O2 Flow Rate 36.3 C L 64 12 124/62 100 04/26/23 10:41 04/26/23 10:41 04/26/23 10:41 04/26/23 10:41 04/26/23 10:41 Height: 6 ft 2.5 in Weight (kg): 94 kg Body Mass Index: 26.2 BMI Classification: Overweight - NPO >8 hours Home Medications and Allergies Home Medications: Ambulatory Orders Fluticasone Propion/Salmeterol [Fluticasone-Salmeterol 45-21] 2 puffs IH BID 04/20/23 Fluticasone [Flonase] 1 sprays FREDI DAILY 04/20/23 Furosemide [Lasix] 40 mg PO DAILY 04/20/23 Hydralazine HCl 50 mg PO DAILY 04/20/23 Vit A/Vit C/Vit E/Zinc/Copper [Preservision Areds Softgel] 1 each PO DAILY 04/20/23 Vitamin B Complex 1 each PO DAILY 04/20/23 Amlodipine Besylate 10 mg PO DAILY 02/09/13 Multivitamin [Multivitamins] 1 each PO DAILY 02/09/13 Omeprazole [PriLOSEC] 20 mg PO BID 02/09/13 Cholecalciferol [Vitamin D3] 25 mcg PO DAILY 09/18/20 Olmesartan/Hydrochlorothiazide [Olmesartan-Hctz 40-12.5 mg Tab] 1 tab ORAL DAILY 09/18/20 carvediloL [Coreg] 6.25 mg PO BID 09/18/20 Fluticasone Propion/Salmeterol [Fluticasone-Salmeterol 45-21] 2 puffs IH BID 04/20/23 Fluticasone [Flonase] 1 sprays FREDI DAILY 04/20/23 Furosemide [Lasix] 40 mg PO DAILY 04/20/23 Hydralazine HCl 50 mg PO DAILY 04/20/23 Vit A/Vit C/Vit E/Zinc/Copper [Preservision Areds Softgel] 1 each PO DAILY 04/20/23 Vitamin B Complex 1 each PO DAILY 04/20/23 Allergies/Adverse Reactions: Allergies Allergy/AdvReac Type Severity Reaction Status Date / Time penicillin G Allergy Rash Verified 09/18/20 13:14 pseudoephedrine HCl * Allergy prostate Verified 09/18/20 13:14 [From Nelson] Anes History & Medical History - Anesthetic History Anesthesia Complications: reports: No previous complications, Post-Operative Nausea/Vomiting (only with previous TURP, no PONV with other surgeries) Family history of Anesthesia Complications: Denies Family history of Malignant Hyperthermia: Denies - Medical History Cardiovascular: reports: Hypertension, High cholesterol Pulmonary: reports: Asthma Gastrointestinal: reports: GERD, Diverticulitis Urinary: reports: Benign prostate hypertrophy, Nocturia, Frequency Musculoskeletal: reports: Osteoarthritis Endocrine/Autoimmune: reports: None Skin: reports: None Smoking Status: Former smoker - Surgical History General: reports: EGD, Appendectomy, Bowel surgery, Colonoscopy Eyes Ears Nose Throat (EENT): reports: Cataracts, Tonsil/Adenoidectomy Urologic: reports: Prostatic surgery Orthopedic: reports: Knee replacement, Arthroscopic surgery Exam General: Alert, Oriented x3, Cooperative Dental: WNL Mouth Openin Fingerbreadth Neck Mobility: Normal Mallampati classification: II Thyromental Distance: 4-6 cm Respiratory: Lungs clear Cardiovascular: Regular rate Plan Anesthesia Type: General Consent for Procedure(s) Verified and Reviewed: Yes Code Status: Attempt Resuscitation ASA classification: 3-Severe systemic disease Is this case an emergency?: No
[2023-04-26] MEDS ORDERED: ePHEDrine 50 MG/ML VIAL IVP PRN (11:53)
[2023-04-26] MEDS ORDERED: METOCLOPRAMIDE 10 MG/2 ML VIAL IVP PRN (11:53)
[2023-04-26] MEDS ORDERED: HYDROmorphone 0.5 MG/0.5 ML SYRINGE IVP PRN (11:53)
[2023-04-26] MEDS ORDERED: NALOXONE 0.4 MG/ML VIAL IVP PRN (11:53)
[2023-04-26] MEDS ORDERED: ONDANSETRON 4 MG/2 ML VIAL IVP PRN ×2 (11:53→14:14)
[2023-04-26] MEDS ORDERED: MORPHINE 2 MG/ML CARPUJECT IVP PRN (11:53)
[2023-04-26] MEDS ORDERED: ATROPINE ABBOJECT 1 MG/10 ML SYRINGE IVP PRN (11:53)
[2023-04-26] MEDS ORDERED: LACTATED RINGERS 1,000 ML IV SCH (12:00)
[2023-04-26] MEDS ORDERED: LIDOCAINE-PF 2% 10 ML AMP SUBQ ONE (12:27)
[2023-04-26] MEDS ORDERED: PROPOFOL 200 MG/20 ML VIAL IVP ONE (12:27)
[2023-04-26] MEDS ORDERED: fentaNYL 100 MCG/2 ML VIAL ONE ×2 (13:26→14:44)
[2023-04-26] MEDS ORDERED: LIDOCAINE 2% URO-JET 5 ML SYRINGE IV ONE (13:45)
[2023-04-26] MEDS ORDERED: DEXAMETHASONE 4 MG/ML VIAL ONE (13:55)
[2023-04-26] MEDS ORDERED: ONDANSETRON 4 MG/2 ML VIAL ONE ×2 (13:55→15:27)
[2023-04-26] MEDS ORDERED: HYDROcod/ACETAM 5/325 MG TABLET PO PRN (14:14)
[2023-04-26] MEDS ORDERED: LACTATED RINGERS 400 ML IV ONE ×2 (14:20)
--- NOTE | 2023-04-26 14:23 | Discharge Plan ---
Discharge Plan Problem Reviewed?: Yes Disposition: Home, Self Care Condition: Good Prescriptions: Docusate Sodium 100Mg Capsule [Colace 100Mg Capsule] 100 mg PO DAILY #10 cap HYDROcod/ACETAM 5/325 [Woodruff 5/325] 1 tab PO Q4H PRN #10 tablet PRN Reason: Pain Diet: Regular Activity Restrictions: Additional Comments (no heavy lifting for two weeks) Shower Restrictions: No Driving Restrictions: No Instruction Topics: Catheter Bag Urinary Empty Clean Additional Instructions or Follow Up instructions: You will be contacted for catheter removal later this week in the office and then will follow-up with Dr. Marie in 6 weeks No Smoking: If you smoke, Please STOP! Call for help. Follow-up with: Zee Garcia PA-C [Primary Care Provider] -
--- NOTE | 2023-04-26 14:26 | OPERATIVE REPORT ---
Operative Report - General Procedure Date: 04/26/23 Planned Procedure: Cystoscopy transurethral resection of prostate Pre-Op Diagnosis: BPH with LUTS Procedure Performed: cystoscopy, transurethral resection of prostate Post Op Diagnosis: BPH with LUTS - Procedure Note Primary Surgeon: Frank Anesthesia Provider: JOMAR Anesthesia Technique: General LMA Pathology: prostate chips Estimated Blood Loss (mL): 2 Drain/Tube Type: Other ([address] yeager) Findings: Mostly right regrowth of prostate tissue Complications: none - Other Other Information/Narrative: After informed consent was obtained the patient was brought to the OR and laid in the supine position. The patient was anesthetized per anesthesia protocols. He was placed in dorsolithotomy position and then prepped and draped in the usual sterile fashion. A formal timeout was performed reconfirming the patient and procedure. A 25 [place] resectoscope was advanced easily into the urinary bladder. He was noted to have significant lateral lobe prostatic regrowth mostly from the right. His tissue appeared blanched almost like it had prior radiation. His bladder itself had moderate trabeculations and multiple cellules. His ureteral orifices were orthotopic in nature. Using loop electrocautery and the bipolar setting we resected his prostatic tissue from the bladder neck to the level of the expected verumontanum though there was no true verumontanum tissue. He had a wide open channel. Spot electrocautery was used for hemostasis. Prostate chips were evacuated and sent for analysis. There was no injury to the bladder or the ureteral orifices. A 21 [place] three-way Yeager catheter was placed after Uro-Jet. He was placed on light continuous bladder irrigation his effluent was clear. The patient was then reversed of anesthesia and brought to PACU that further incident. All counts were correct. The plan will be to have the catheter in place for a few days and then follow-up in 6 weeks.
[2023-04-26] MEDS: fentaNYL 100 MCG/2 ML VIAL IVP PRN ×2 (14:35→14:43)
[2023-04-26] MEDS ORDERED: HYDROcod/ACETAM 5/325 MG TABLET ONE (15:21)
[2023-04-26 16:42] VITALS: O2SAT 97
[2023-04-26 16:51] VITALS: BP 144/65
--- NOTE | 2023-04-27 10:03 | ANESTHESIA POST OP EVALUATION ---
Anesthesia Post Eval - Post Anesthesia Eval Vitals: Last Vital Signs Temp 36.2 C L 04/26/23 16:00 Pulse 66 04/26/23 16:00 Resp 16 04/26/23 16:00 BP 144/65 H 04/26/23 16:00 Pulse Ox 97 04/26/23 16:00 O2 Flow Rate CV Function Including HR & BP: Stable Pain Control: Satisfactory Nausea & Vomiting: Negative Mental Status: Baseline Respiratory Status: Airway Patent Hydration Status: Satisfactory Anesthesia Complications: None
== END 2023-04-26 10:02 | disposition home or self-care (01) ==
LOC: SDS 10:01
PROVIDERS: ATTEND Urology
PROC: 0VB08ZZ Excision of Prostate, Via Natural or Artificial Opening Endoscopic (ICD-10-PCS; principal; 2023-04-26 12:15)
DX: N40.1 Benign prostatic hyperplasia with lower urinary tract symptoms (principal); R35.0 Frequency of micturition; R35.1 Nocturia; J45.909 Unspecified asthma, uncomplicated; Z87.891 Personal history of nicotine dependence; I10 Essential (primary) hypertension
CPT/HCPCS: 52630; A9270; J7120

== ENCOUNTER 2023-04-26 19:48 | Emergency (ER) | payer MEDICARE, OTHER | END 2023-04-26 20:20 | disposition left against medical advice (07) | LOC: ED 19:48 | DX: Z53.21 Procedure and treatment not carried out due to patient leaving prior to being seen by health care provider (principal) ==

== ENCOUNTER 2023-05-03 10:25 | Outpatient (CLI) | payer MEDICARE, OTHER ==
--- NOTE | 2023-05-03 11:36 | XRAY Report ---
PROCEDURE: Abdomen 1 View X-Ray INDICATIONS: CONSTIPATION TECHNIQUE: One view of the abdomen acquired. COMPARISON: None. FINDINGS: Surgical changes and devices: None. Bowel: Bowel gas pattern is normal. Increased stool is seen throughout the colon. Soft tissues: No suspicious abdominal calcifications. Visualized solid organ contours appear normal in size. Vasculature has atherosclerotic calcifications. Bones: No suspicious bony lesions. Degenerative changes of the lumbar spine. Degenerative changes o f both hips. IMPRESSION: Increased stool throughout the colon consistent with constipation. Reviewed by: Brian Fan on 05/03/2023 11:35 AM [facility] Approved by: Brian Fan on 05/03/2023 11:35 AM [facility] Station ID: [id number]
== END 2023-05-03 10:26 | disposition home or self-care (01) ==
LOC: DI 10:25
PROVIDERS: ATTEND Physician Assistant Medical
DX: K59.00 Constipation, unspecified (principal)

== ENCOUNTER 2023-05-10 08:00 | Outpatient (CLI) | payer MEDICARE, OTHER | END 2023-05-10 08:15 | disposition home or self-care (01) | LOC: LAB.N 08:00 | PROVIDERS: ATTEND Physician Assistant Medical | DX: R30.0 Dysuria (principal) | CPT/HCPCS: 87086 ==

== ENCOUNTER 2023-08-13 08:20 | Outpatient (CLI) | payer MEDICARE, OTHER ==
[2023-08-13 08:32] LABS: BASOPHILS % (AUTO) 0.7 %; EOSINOPHILS # (AUTO) 0.3 10^3/uL (0.0-0.7); EOSINOPHILS % (AUTO) 6.3 %; HCT - HEMATOCRIT 38.1 % (42.0-52.0); HGB - HEMOGLOBIN 12.8 g/dL (14.0-18.0); LYMPHOCYTES # (AUTO) 0.7 10^3/uL (1.5-3.5); LYMPHOCYTES % (AUTO) 16.1 %; MEAN CORPUSCULAR HEMOGLOBIN 32.5 pg (27.0-31.0); MEAN CORPUSCULAR HGB CONC 33.6 g/dL (32.0-36.0); MEAN CORPUSCULAR VOLUME 96.7 fL (80.0-94.0); MEAN PLATELET VOLUME 9.4 fL (7.4-11.4); MONOCYTES # (AUTO) 0.4 10^3/uL (0.0-1.0); MONOCYTES % (AUTO) 8.5 %; NEUTROPHILS # (AUTO) 2.8 10^3/uL (1.5-6.6); NEUTROPHILS % (AUTO) 67.9 %; PLT - PLATELET COUNT 130 10^3/uL (130-450); RED BLOOD COUNT 3.94 10^6/uL (4.70-6.10); RED CELL DISTRIBUTION WIDTH 14.9 % (12.0-15.0); WHITE BLOOD COUNT 4.1 x10^3/uL (4.8-10.8)
[2023-08-13 08:46] LABS: ALBUMIN 4.3 g/dL (3.2-5.5); ALBUMIN/GLOBULIN RATIO 1.7 (1.0-2.2); ALKALINE PHOSPHATASE 44 IU/L (42-121); ALT ALANINE AMINOTRANSFERASE 18 IU/L (10-60); AST ASPARTATE AMINOTRANSFERASE 18 IU/L (10-42); BILIRUBIN,TOTAL 1.3 mg/dL (0.2-1.0); BUN - BLOOD UREA NITROGEN 27 mg/dL (6-20); CALCIUM 9.8 mg/dL (8.5-10.3); CARBON DIOXIDE - CO2 30 mmol/L (21-32); CHLORIDE 102 mmol/L (101-111); CHOL/HDL RATIO 3.6 (<5.0); CHOLESTEROL 177 mg/dL; CREATININE 1.2 mg/dL (0.6-1.3); GFR - MDRD 58 (>89); GLUCOSE 127 mg/dL (74-104); HDL CHOLESTEROL 49 mg/dL; LDL CHOLESTEROL,CALCULATED 109 mg/dL; LDL/HDL RATIO 2.2 (<3.6); POTASSIUM 4.6 mmol/L (3.5-4.5); SODIUM 136 mmol/L (135-145); TOTAL PROTEIN 6.8 g/dL (6.4-8.9); TRIGLYCERIDES 97 mg/dL (48-352); VLDL CHOLESTEROL 19 mg/dL
[2023-08-17 11:09] LABS: ESTIMATED AVERAGE GLUCOSE 94 mg/dL (70-100); HEMOGLOBIN A1c% 4.9 % (4.27-6.07)
== END 2023-08-13 08:21 | disposition home or self-care (01) ==
LOC: LAB 08:20
PROVIDERS: ATTEND Physician Assistant Medical
DX: R73.9 Hyperglycemia, unspecified (principal); K21.9 Gastro-esophageal reflux disease without esophagitis
CPT/HCPCS: 36415; 80053; 80061; 83036; 83721; 85025

== ENCOUNTER 2024-02-10 08:25 | Outpatient (CLI) | payer MEDICARE, OTHER ==
[2024-02-10 08:41] LABS: EOSINOPHILS # (AUTO) 0.3 10^3/uL (0.0-0.7); EOSINOPHILS % (AUTO) 6.9 %; HCT - HEMATOCRIT 36.8 % (42.0-52.0); HGB - HEMOGLOBIN 12.7 g/dL (14.0-18.0); LYMPHOCYTES # (AUTO) 0.6 10^3/uL (1.5-3.5); LYMPHOCYTES % (AUTO) 15.9 %; MEAN CORPUSCULAR HEMOGLOBIN 33.1 pg (27.0-31.0); MEAN CORPUSCULAR HGB CONC 34.5 g/dL (32.0-36.0); MEAN CORPUSCULAR VOLUME 95.8 fL (80.0-94.0); MEAN PLATELET VOLUME 9.4 fL (7.4-11.4); MONOCYTES # (AUTO) 0.4 10^3/uL (0.0-1.0); NEUTROPHILS # (AUTO) 2.6 10^3/uL (1.5-6.6); NEUTROPHILS % (AUTO) 66.9 %; PLT - PLATELET COUNT 123 10^3/uL (130-450); RED BLOOD COUNT 3.84 10^6/uL (4.70-6.10); RED CELL DISTRIBUTION WIDTH 14.4 % (12.0-15.0); WHITE BLOOD COUNT 3.9 x10^3/uL (4.8-10.8)
[2024-02-10 09:00] LABS: ALBUMIN 4.2 g/dL (3.2-5.5); ALBUMIN/GLOBULIN RATIO 1.6 (1.0-2.2); BILIRUBIN,TOTAL 1.4 mg/dL (0.2-1.0); CALCIUM 9.7 mg/dL (8.5-10.3); POTASSIUM 4.5 mmol/L (3.5-4.5); TOTAL PROTEIN 6.9 g/dL (6.4-8.9)
[2024-02-10 10:13] LABS: ESTIMATED AVERAGE GLUCOSE 88 mg/dL (70-100); HEMOGLOBIN A1c% 4.7 % (4.27-6.07)
== END 2024-02-10 08:26 | disposition home or self-care (01) ==
LOC: LAB 08:25
PROVIDERS: ATTEND Physician Assistant Medical
DX: D64.9 Anemia, unspecified (principal); R73.9 Hyperglycemia, unspecified
CPT/HCPCS: 36415; 80053; 83036; 85025